=== PATIENT | male | born 1985 | race Caucasian/White ===

== ENCOUNTER → 2018-08-30 | Outpatient (CLI) | payer OTHER ==
[~2018-08-30] MED LIST: Amoxicillin500 MG PO; Bactrim Ds Tab1 EACH PO; NYST237S MT; ONDA4ODT MM; Ultram50 MG PO
== END ==
LOC: LAB SHORT 19:32 → LAB EV 19:32
DX: B99.9 Unspecified infectious disease (principal)
CPT/HCPCS: 87070; 87075; 87205

== ENCOUNTER 2018-09-01 19:30 | Emergency (ER) | payer OTHER ==
[~2018-09-01] VITALS: Ht 182.9 cm; Wt 106.6 kg
[2018-09-01] MEDS ORDERED: Bactrim Ds Tab1 EACH PO (22:30)
[2018-09-01] MEDS ORDERED: ONDA4ODT MM (22:30)
== END 2018-09-01 22:40 | disposition home or self-care (01) ==
LOC: ER 19:30
DX: S50.01XD Contusion of right elbow, subsequent encounter (principal); M71.021 Abscess of bursa, right elbow; V19.9XXD Pedal cyclist (driver) (passenger) injured in unspecified traffic accident, subsequent encounter; F17.200 Nicotine dependence, unspecified, uncomplicated
CPT/HCPCS: 99283; A9270; A9270-GY

== ENCOUNTER 2018-12-21 13:07 | Emergency (ER) | payer OTHER ==
[~2018-12-21] VITALS: Ht 185.4 cm; Wt 102.1 kg
[~2018-12-21 13:07] MED LIST changes: -Amoxicillin500 MG PO; -NYST237S MT; -Ultram50 MG PO
[2018-12-21] MEDS ORDERED: NYST237S MT (14:50)
[2018-12-21] MEDS ORDERED: Amoxicillin500 MG PO (14:50)
[2018-12-21] MEDS ORDERED: Ultram50 MG PO (14:51)
== END 2018-12-21 15:04 | disposition home or self-care (01) ==
LOC: ER 13:07
DX: K08.89 Other specified disorders of teeth and supporting structures (principal); F17.200 Nicotine dependence, unspecified, uncomplicated
CPT/HCPCS: 96372; 99283-25; J1885